=== PATIENT | male | born 1985 | race Caucasian/White ===

== ENCOUNTER 2020-10-09 13:35 | Outpatient (REF) | payer OTHER, SELFPAY ==
--- NOTE | ~2020-10-09 | XR_ITS ---
EXAMINATION: XR ANKLE, RIGHT CLINICAL INFORMATION: Pain COMPARISON: None TECHNIQUE: AP, lateral, and mortise views of the right ankle. FINDINGS: Bone alignment is normal. No acute fracture or dislocation is seen. There is cortical thickening of the distal fibular shaft questionable for old trauma. There is a well-corticated soft tissue ossification inferior to the medial malleolus suggestive of old trauma as well. There are small osteophytes at the anterior tibiotalar joint. The ankle mortise is otherwise normal. There is a small calcaneal spur at the Achilles tendon insertion. Soft tissues are otherwise unremarkable. XR/XR ankle RT min 3V IMPRESSION: No acute fracture or dislocation seen. Question old trauma to the distal fibular shaft and medial malleolus. 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
== END 2020-10-09 13:36 | disposition home or self-care (01) ==
LOC: HO.XRAY 13:35
PROVIDERS: PCP Physician Assistant Medical; Visit Provider Physician Assistant
DX: M25.571 Pain in right ankle and joints of right foot (principal); M67.40 Ganglion, unspecified site
CPT/HCPCS: 73610; 99202